=== PATIENT | male | born 1960 | race Two or more races ===

== ENCOUNTER 2023-01-20 13:01 | Outpatient (CLI) | payer OTHER, SELFPAY ==
--- NOTE | ~2023-01-20 | XR_ITS ---
Clinical Indication: TB screening PA and lateral views of the chest: Comparison: None Findings: There is a 1 cm nodular opacity at the right lung base region. Left lung clear. Cardiomedi astinal silhouette is within normal limits. Bones and soft tissues are unremarkable. Impression: 1 cm nodule right lung base. CT scan recommended for further evaluation. Reviewed, dictated and finalized at [facility]. Impression: 1 cm nodule right lung base. CT scan recommended for further evaluation.
== END 2023-01-20 13:02 | disposition home or self-care (01) ==
PROVIDERS: Visit Provider Pediatrics
DX: R76.11 Nonspecific reaction to tuberculin skin test without active tuberculosis (principal); R91.1 Solitary pulmonary nodule
CPT/HCPCS: 71046

== ENCOUNTER 2024-11-12 16:44 | Emergency (ER) | payer OTHER, SELFPAY ==
--- NOTE | ~2024-11-12 | XR_ITS ---
XR chest 2V Ordering provider: Jose Villeda APRN History: 64 years Male with . cough, rhonchi, uri symptoms . Comparison: January 20, 2023 FINDINGS: MEDIASTINUM: The cardiac silhouette is not enlarged. LUNGS: No infiltrates, effusions or pneumothorax. OTHER: No free air under the diaphragm. IMPRESSION: No acute cardiopulmonary pathology. Reviewed, dictated and finalized at location A.
[2024-11-12 16:56] VITALS: BP 126/84; PULSE 98; RESP 18; TEMP 37.2; O2SAT 97
[2024-11-12 17:26] LABS: EDSTREPNEGPOS1 Negative (Negative)
[2024-11-12 17:31] LABS: EDCOVIDSCREEN Negative (Negative); EDINFLUASCREEN Negative (Negative); EDINFLUBSCREEN Negative (Negative)
--- NOTE | 2024-11-12 18:51 | ED_ITS ---
HPI - URI/Sore Throat General Chief Complaint: Upper Respiratory Infection Stated Complaint: cold symptoms Time Seen by Provider: 11/12/24 18:05 Source: patient, family and RN notes reviewed Mode of arrival: ambulatory Limitations: no limitations and language barrier (Son speaks Icelandic) History of Present Illness HPI Narrative: 64-year-old male presents Express [facility] son complaining of upper respiratory symptoms since yesterday. Patient reports having dry cough, watery eyes, sore throat, congestion. Denies any other upper respiratory symptoms. Patient denies any fevers, body aches, chills, nausea vomiting, diarrhea. Denies any chest pain shortness of breath. Patient is currently being evaluated for pulmonary nodule has not been diagnosed with lung cancer. Patient does not smoke. Patient has a history of asthma. Related Data Home Medications ?Medication ?Instructions ?Recorded ?Confirmed ?Last Taken ?Type albuterol sulfate 90 mcg/actuation inhalation 11/12/24 Unknown History aerosol inhaler Allergies Allergy/AdvReac Type Severity Reaction Status Date / Time aspirin Allergy Mild Swelling Verified 11/12/24 17:16 of the Eye Review of Systems Review of Systems: CONSTITUTIONAL: Denies fever, chills, body aches, or sweats. EYES: Denies visual changes, redness, or discharge. ENT: Positive for congestion, sore throat negative for rhinorrhea or otalgia. CARDIOVASCULAR: Denies chest pain, palpitations, or edema. RESPIRATORY: Positive for cough. Negative for dyspnea or wheezing. GASTROINTESTINAL: Denies abdominal pain, nausea, vomiting, or diarrhea. GENITOURINARY: Denies dysuria or hematuria. SKIN: Denies rash or itching. MUSCULOSKELETAL: Denies back pain, joint pain, or myalgia. NEUROLOGIC: Denies headache, numbness, or weakness. PSYCHIATRIC: Denies anxiety or depression. All other systems reviewed are negative, except as documented in HPI. PMFSH Comments At the time of my signature, I reviewed and agree with the nursing past medical, surgical, social, and family history. There is no relevant family history pertinent to the patient complaint. Exam Narrative: GENERAL: This is a well-nourished, well-developed adult, in no apparent distress. They are non ill-appearing, nontoxic appearing. HEAD: normocephalic, atraumatic. EYES: Sclera clear/white. Vision is grossly intact. Conjunctiva normal bilaterally. Extraocular movements intact. EARS: External ears normal, auditory canals clear and without drainage, TMs without erythema or perforation. Hearing grossly intact. NOSE: External nose normal with no obvious nasal discharge, nasal turbinates erythematous, no rhinorrhea. THROAT: Mucous membranes moist, posterior pharynx erythematous without exudate. Uvula is midline. Postnasal drip present. NECK: Neck supple, non-tender without lymphadenopathy, masses or thyromegaly. CARDIOVASCULAR: Regular rate and rhythm without murmurs, gallops, or rubs. RESPIRATORY: Rhonchi to left upper lobe. Otherwise clear throughout. Breath sounds equal bilaterally. No wheezes, rales. SKIN: warm, Dry, intact with no suspicious lesions or rash, good texture and turgor. NEURO: awake, alert, and oriented to person, place and time. There were no obvious focal neurologic abnormalities. EXTREMITIES: No joint tenderness, effusion, or edema noted. BACK: Nontender without deformity. Course Course Emergency Course: Portions of this record may have been created with voice recognition software Level of Care: Express Care Visit Vital Signs Vital signs: Vital Signs Temperature 98.9 F 11/12/24 16:56 Pulse Rate 98 11/12/24 16:56 Respiratory Rate 18 11/12/24 16:56 Blood Pressure 126/84 11/12/24 16:56 Pulse Oximetry 97 11/12/24 16:56 Temperature 98.9 F 11/12/24 16:56 Pulse Rate 98 11/12/24 16:56 Respiratory Rate 18 11/12/24 16:56 Blood Pressure 126/84 11/12/24 16:56 Pulse Oximetry 97 11/12/24 16:56 MDM - URI/Sore Throat MDM Narrative Medical decision making narrative: Chest x-ray negative for any pneumonia or acute findings. COVID, flu, strep were negative. Throat culture is pending. Likely patient has viral bronchitis. Will prescribe short course of prednisone and benzonatate tablets as needed for cough. Discussed physical exam findings. Advised supportive measures and signs/symptoms to go to the ER. Pt is appropriate for outpt treatment and f/u. Differential Diagnosis Differential diagnosis: Likely upper respiratory infection, viral infection, bronchitis and pharyngitis Lab Data Attestation: I reviewed the patient's lab results. Labs: Lab Results 06/25/25 06/25/25 Range/Units 17:24 17:30 POC Influenza A Ag Negative (Negative) POC Influenza B Ag Negative (Negative) POC SARS CoV-2 Ag Negative (Negative) POC Grp A Strep Screen Negative (Negative) Discharge Plan Discharge Clinical Impression: Bronchitis Patient Disposition: Home Condition: Stable Instructions: Acute Bronchitis (ED) Additional Instructions: Your COVID, flu, strep throat are negative today. A throat culture will be sent off and if it is positive for strep you will be contacted and started on a appropriate antibiotics. Chest x-ray is negative for any acute findings or pneumonia. Take prednisone as directed. Take in the morning take with food. Please use your inhaler as needed for shortness of breath or wheezing. Recommend Flonase spray and Zyrtec (or Claritin/Izabela) Take benzonatate tablets as needed for cough. Tylenol ibuprofen as needed for pain or fevers. Symptomatic treatment includes: rest, fluids, and increase humidity of the air at home. Follow up with your primary care provider as needed in 1 week Go to the ER for worsening symptoms such as difficulty breathing, shortness of breath, chest pain, worsening fevers, weakness, or any other serious concerns shauna nicole kud-19 wal'iinfilwanza waltihab [facility] aleaqdii salbiat alyawga. sayatimu 'iirsal eayinat min halqika, wa'iidha kanat 'iijabiatan lialtihab [facility] aleaqdii, fasayatimu altawasul maeak [facility]' aleilaj bialmudadaat alhayawiat almunasibati. surat alsadr tiara'ashieat alsiyniat salbiat keara'ayi shauna hadat 'aw altihab riawi. tanawal clare hasb altawjihati. luis cevlalos mae altaeami. desmond sharma aliastinshaq hasab alhajat lidiq altanafus 'aw alsufayr. octavio lazo ('aw klaritin/alijra). tanawal 'aqras binzunatat hasab alhajat lilsieali. taylinul 'iibubrufin hasb alhajat lil'alam 'aw alhumaa. yashmal eilaj al'aeradi: alraahati, washurb alsawayila, waziadat rutubat alhawa' fi almanzili. lis valentine muqadam alrieayat alsihiyat al'awaliat hasab alhajat khilal 'usbue wahidi. kg qism altawari fi norm tafaqum al'aeradi, mithl sueubat altanafusi, wadiq altanafusi, wa'alam alsadra, watafaqum alhumaa, waldueufi, 'aw 'ayi mashakil pinoatirat '[facility]. Patient Language: Bulgarian Prescriptions: New prednisone 20 mg tablet 40 mg PO DAILY 3 Days Qty: 6 0RF benzonatate 100 mg capsule 100 mg PO TID PRN (Reason: cough) Qty: 20 0RF No Action albuterol sulfate 90 mcg/actuation HFA aerosol inhaler INHALATION Follow-up/Referrals: Lily,Jenna Hanson PATrinyC [Primary Care Provider] - Stand Alone Forms: Work/School Release IP Time of Disposition: 18:30
== END 2024-11-12 18:34 | disposition home or self-care (01) ==
PROVIDERS: PCP Physician Assistant
DX: J40 Bronchitis, not specified as acute or chronic (principal); Z20.822 Contact with and (suspected) exposure to COVID-19
CPT/HCPCS: 71046; 87081; 87426; 87804; 87880; 99213; G0463